=== PATIENT | female | born 1970 | race Caucasian/White ===

== ENCOUNTER 2018-11-18 07:20 | Day surgery (SDC) | payer OTHER ==
[2018-11-18] VITALS (12 sets, daily range): BP systolic 92–132; BP diastolic 43–72; PULSE 66–85; RESP 13–19; Ht 154.9 cm; Wt 88.9 kg
[~2018-11-18] VITALS: Ht 154.9 cm; Wt 88.9 kg
[2018-11-18] MEDS ORDERED: IBUP800T48 PO (07:57)
[2018-11-18] MEDS ORDERED: GABA300C16 PO (07:57)
[2018-11-18] MEDS ORDERED: BISO5TAB21 PO (08:15)
[2018-11-18] MEDS ORDERED: MIDAZOLAM 1 MG/ML 2 ML INJ ONE (08:16)
[2018-11-18] MEDS ORDERED: CEFAZOLIN 1 GM INJ ONE (08:16)
[2018-11-18] MEDS ORDERED: FENTAnyl 50 MCG/ML VIAL ONE (08:16)
[2018-11-18] MEDS ORDERED: PROPOFOL 20 ML ONE (08:16)
[2018-11-18] MEDS ORDERED: BUPIVACAINE 0.5% (SDV) 30 ML INJ ONE (08:51)
--- NOTE | 2018-11-18 08:51 | PREAC ---
Date/Time of Note Date/Time of Note DATE: 11/18/18 TIME: 08:49 Anesthesia Eval and Record Evaluation Time Pre-Procedure Interview DATE: 11/18/18 TIME: 08:49 Age 48 Sex female NPO: 8 hrs Preoperative diagnosis Right Toe pain Planned procedure Right Toe Exostectomy 4th and 5th toe Past Medical History Past Medical History: Includes GI: Obesity Surgery & Anesthesia Issues No known issue Meds Anticoagulation: No Beta Jeni within 24 hr: No Reason Beta Jeni not given: Pt. not on B-Jeni Reported Medications Bisoprolol Fumarate* (Bisoprolol Fumarate*) 5 Mg Tablet, 5 MG PO QHS, TAB 11/18/18 Gabapentin* (Gabapentin*) 300 Mg Capsule, 300 MG PO TID, #90 CAP 11/18/18 Ibuprofen* (Motrin*) 800 Mg Tab, 800 MG PO TID PRN for PAIN, TAB 11/18/18 Meds reviewed: Yes Allergies Coded Allergies: Penicillins (Verified Allergy, Severe, RASH, 11/18/18) Allergies Reviewed: Yes Labs/Studies Labs Reviewed: Reviewed by anesthesiologist test: Negative Studies: ECG (n/a), CXR (n/a) Pre-procedure Exam Last vitals Vital Signs Date Temp Pulse Resp B/P (MAP) Pulse Ox O2 O2 Flow FiO2 Time Delivery Rate 11/18/18 98.1 66 18 132/72 99 Room Air 08:15 (92) Airway: Adequate mouth opening, Adequate thyromental dist Mallampati: Mallampati II Teeth: Normal Lung: Normal Heart: Normal ASA Physical Status ASA physical status: 2 Emergency: None Planned Anesthetic General/MAC: LMA Nerve block: Sciatic (right) Planned Pain Management Single shot nerve block, Parenteral pain med Pre-operative Attestations Prior to commencing anesthesia and surgery, the patient was re-evaluated, there was verification of: *The patient's identity *The results of appropriate recent lab work and preoperative vital signs *The above evaluation not changing prior to induction *Anesthetic plan, risk benefits, alternative and complications discussed with patient/family; questions answered; patient/family understands, accepts and wishes to proceed. SOWMYA FRANCIS MD November 18, 2018 08:51
[2018-11-18] MEDS ORDERED: ROPIVACAINE 0.5 % 30 ML VIAL ONE (08:55)
[2018-11-18] MEDS ORDERED: DIPHENHYDRAMINE 50 MG INJ IV PRN (09:00)
[2018-11-18] MEDS ORDERED: OXYCODONE/ACETAMINOPHEN (5/325) TAB PO PRN (09:00)
[2018-11-18] MEDS ORDERED: MEPERIDINE 25 MG INJ IV PRN (09:00)
[2018-11-18] MEDS ORDERED: ONDANSETRON 4 MG INJ IV PRN (09:00)
[2018-11-18] MEDS ORDERED: HYDROmorphONE 1 MG/5 ML IV SYRINGE IV PRN ×3 (09:00)
[2018-11-18] MEDS ORDERED: METOCLOPRAMIDE 10 MG INJ IV PRN (09:00)
[2018-11-18] MEDS ORDERED: FENTAnyl 50 MCG/ML VIAL IV PRN ×3 (09:00)
--- NOTE | 2018-11-18 09:00 | HPN ---
Date/Time of Note Date/Time of Note DATE: 11/18/18 TIME: 08:59 Interval H&P Admission Note Pt. seen H&P reviewed: No system changes KARO CHAVEZ DPM November 18, 2018 09:00
[2018-11-18] MEDS ORDERED: EPHEDrine 25 MG/5 ML SYG ONE (09:30)
[2018-11-18] MEDS ORDERED: METOCLOPRAMIDE 10 MG INJ ONE (09:30)
[2018-11-18] MEDS ORDERED: KETOROLAC 30 MG INJ ONE (09:30)
[2018-11-18] MEDS ORDERED: ONDANSETRON 4 MG INJ ONE (09:30)
[2018-11-18] MEDS ORDERED: DEXAMETHASONE 4 MG/ML 5 ML INJ ONE (09:30)
--- NOTE | 2018-11-18 09:55 | OPPN ---
Date/Time of Note Date/Time of Note DATE: 11/18/18 TIME: 09:51 Operative Report Preoperative Diagnosis Exostosis of right fourth and fifth toes Right fourth toe pain Right fifth toe pain Postoperative Diagnosis Exostosis of right fourth and fifth toes Right fourth toe pain Right fifth toe pain Operation/Procedure Performed Exostectomy right fifth toe Exostectomy right fourth toe Surgeon see signature line graduate assistant None Anesthesia: general Estimated blood loss: minimal Transfusion Required none Specimen Bone from right fourth and fifth toes. Grafts/Implants none Complications none KARO CHAVEZ DPM November 18, 2018 09:55
--- NOTE | 2018-11-18 09:55 | OPR ---
Date/Time of Note Date/Time of Note DATE: 11/18/18 TIME: 09:55 Operative Report Procedure Date: Nov 23, 2018 Preoperative Diagnosis Exostosis of right fourth and fifth toes Right fourth toe pain Right fifth toe pain Postoperative Diagnosis Exostosis of right fourth and fifth toes Right fourth toe pain Right fifth toe pain Operation/Procedure Performed Exostectomy right 4th toe Exostectomy right 5th toe Surgeon see signature line [employer] Course Assistant None Anesthesia Type: general Estimated Blood Loss: minimal Transfusion none Specimen Bone from the right 4th and 5th toes Grafts/Implants none Complications none Pt Condition Post Procedure: stable Disposition: PACU Indications This is a pleasant 48 year old female patient who has been suffering with pain in her right 4th and 5th toes. Risks and complications of this type of surgery was discussed with patient in great detail. Risks and complications discussed include, but are not limited to, postoperative infection, postoperative pain, chronic pain and disability, hardware failure, failure of surgery to correct the problem, need for additional surgical procedures, toenail changes, onychomycosis, deep venous thrombosis, gait disturbance, problems with shoegear, limitation of activities, limb loss and loss of life. Patient understands the discussion and agrees to the procedure. An informed consent was obtained, signed and placed in the chart. No guarantee or warrantee was given or implied as to the outcome of the procedure either in verbal or written form. Procedure Description The patient was seen in the preoperative unit. The proposed surgery was discussed with patient in great detail. Risks and complications of this type of surgery was discussed with patient in great detail. Opportunity was given to patient to ask questions and all questions were answered. The patient acknowledges understanding of the discussion. An informed consent was then obtained, signed and placed in the chart. Patient was taken to the operating room and was placed on the operating table in the supine position. All bony prominences were padded properly. A timeout was called by the circulating nurse. Everyone in the operating room was agreeable to the timeout. The patient was then placed under general anesthesia by the anesthesiologist. A pneumatic ankle tourniquet was applied to the right ankle. The right lower extremity was scrubbed,l prepped, and draped in the usual aseptic manner. An Esmarch bandage was utilized to exsanguinate the right lower extremity and the tourniquet was inflated to 250 mmHg pressure. Attention was directed to the right foot. Procedure #1: Exostectomy of right 4th toe A bony exostosis was palpable on the lateral aspect of the 4th toe PIPJ. Using a sharp #15 blade, I made two semi-elliptical incisions on the lateral PIPJ area. Bleeders were cauterized as needed. The skin segment was sharply debrided through the subcutaneous tissue and removed sharply. The medial aspect of the PIPJ was incised using a sharp #15 blade and periosteal dissection was made. Small denisse exostosis was found. A rongeur was used to excise the denisse exostosis. Hand rasp was used to smooth the rough edges. The wound was irrigated with copious amounts of sterile normal saline. The medial joint capsule was then closed using 5-0 Vicryl suture. The skin was closed using 5-0 Monocryl suture and steri-strips were applied. Proceudre #2: Exostectomy of right 5th toe Same exact procedure was used as in procedure #1 with the exception of incisions on the medial side of the toe rather than the lateral side. Postoperative injection was given using KARO CHAVEZ DPM November 18, 2018 09:55
--- NOTE | 2018-11-18 09:58 | PAC ---
Date/Time of Note Date/Time of Note DATE: 11/18/18 TIME: 09:57 Post-Anesthesia Notes Post-Anesthesia Note Last documented vital signs Vital Signs Date Temp Pulse Resp B/P (MAP) Pulse Ox O2 O2 Flow FiO2 Time Delivery Rate 11/18/18 98.1 66 18 132/72 99 Room Air 010:05 (92) Activity: WNL Respiratory function: WNL Cardiovascular function: WNL Mental status: Baseline Pain reasonably controlled: Yes Hydration appropriate: Yes Nausea/Vomiting absent: Yes SOWMYA FRANCIS MD November 18, 2018 09:58
== END 2018-11-18 11:50 | disposition home or self-care (01) ==
LOC: SDS 07:20
PROVIDERS: ATTEND Podiatrist Foot & Ankle Surgery
DX: D16.31 Benign neoplasm of short bones of right lower limb (principal)
CPT/HCPCS: 28124; 73630; 88304; J0690; J1100; J1885; J2250; J2405; J2765; J2795; J3010; Z7512; Z7610